=== PATIENT | female | born 1980 | race American Indian/Alaskan Native ===

== ENCOUNTER 2019-08-19 06:34 | Emergency (ER) | payer MEDICAID ==
[2019-08-19] MEDS ORDERED: ACETAMINOPHEN 500 MG TAB PO ONE (06:47)
[2019-08-19] MEDS ORDERED: SODIUM CHLORIDE 0.9% 500 ML 500 ML IV ONE (06:55)
--- NOTE | 2019-08-19 07:21 | XRay Report ---
CHEST 2 VIEWS INDICATION / CLINICAL INFORMATION: therese. Chest pain with dyspnea COMPARISON: None available. FINDINGS: SUPPORT DEVICES: None. HEART / MEDIASTINUM: No significant abnormality. LUNGS / PLEURA: Small right pleural effusion. Patchy airspace density within the right lower lung. Th e left lung is clear. Signer Name: Neptali Carroll MD Signed: 08/19/2019 7:17 AM Workstation Name: [id number]
[2019-08-19 07:23] LABS: Basophils # (Auto) 0.1 K/mm3 (0.0-0.1); Basophils % (Auto) 0.5 % (0.0-1.8); Eosinophils % (Auto) 0.2 % (0.0-4.3); Hematocrit 39.5 % (30.3-42.9); Hemoglobin 13.9 gm/dl (10.1-14.3); Lymphocytes # (Auto) 2.9 K/mm3 (1.2-5.4); Lymphocytes % (Auto) 20.5 % (13.4-35.0); Mean Corpuscular HGB Conc 35 % (30-34); Mean Corpuscular Volume 83 fl (79-97); Monocytes # (Auto) 0.9 K/mm3 (0.0-0.8); Monocytes % (Auto) 6.4 % (0.0-7.3); Platelet Count 260 K/mm3 (140-440); Red Blood Count 4.74 M/mm3 (3.65-5.03); Red Cell Distribution Width 15.4 % (13.2-15.2)
[2019-08-19 07:33] LABS: INR 1.09 (0.87-1.13)
[2019-08-19 07:43] LABS: Alanine Aminotransferase 15 units/L (7-56); Albumin 3.9 g/dL (3.9-5); BUN/Creatinine Ratio 7; Blood Urea Nitrogen 4 mg/dL (7-17); Calcium 9.3 mg/dL (8.4-10.2); Hemolysis Index 6
[2019-08-19] MEDS ORDERED: KETOROLAC 30 MG/1 ML INJ IV ONE (07:51)
--- NOTE | 2019-08-19 07:57 | Emergency Department Report ---
HPI - General Chief Complaint: Dyspnea/Respdistress PUI?: Yes Time Seen by Provider: 08/19/19 07:37 - HPI HPI: Room 9 The patient is a 38-year-old female present with a chief complaint of right sided thorax pain and cough. The patient states she developed pain in her right lateral chest/side has been worsening over the past 2 days. Patient admits to an occasional cough but is nonproductive. Patient denies history of fever but was found to be febrile in triage today. Patient denies any known sick contacts, patient denies dysuria or rhinorrhea. Location: [See above] Duration: [See above] Quality: [See above] Severity: [See above] Timing: [See above] Context: [See above] Modifying factors: [See above] Associated signs and symptoms: [see above] Mode of Transportation: The patient drove herself to the emergency department and there are no visitors present ED Past Medical Hx - Past Medical History Previous Medical History?: No - Surgical History Past Surgical History?: Yes Additional Surgical History: C-Sec X 3 - Family History Family history: no significant - Social History Smoking Status: Never Smoker Substance Use Type: None (Denies illicit drug use), Alcohol (Occasional) - Medications Home Medications: Home Medications Medication Instructions Recorded Confirmed Last Taken Type Albuterol INH(or & Nicu Only) 2 puff IH QID PRN #8.5 gram 08/19/19 Unknown Rx [ProAir HFA Inhaler] HYDROcodone/APAP 5-325 [Norris 1 - 2 each PO Q6HR PRN #14 tablet 08/19/19 Unknown Rx 5/325] Ibuprofen [Motrin 800 MG tab] 800 mg PO Q8HR PRN #20 tablet 08/19/19 Unknown Rx levoFLOXacin [Levaquin TAB] 500 mg PO QDAY #10 tablet 08/19/19 Unknown Rx ED Review of Systems ROS: Stated complaint: PAIN WHEN BREATHING RT SIDE Other details as noted in HPI Constitutional: denies: fever Eyes: denies: eye pain ENT: denies: throat pain Respiratory: cough Endocrine: no symptoms reported Genitourinary: denies: dysuria Musculoskeletal: denies: back pain Physical Exam - Physical Exam Vital Signs: Vital Signs 08/19/19 06:44 Temperature 100.6 F H Pulse Rate 107 H Respiratory 20 Rate Blood Pressure 136/88 O2 Sat by Pulse 95 Oximetry Physical Exam: GENERAL: The patient is well-developed well-nourished female lying on stretcher not appearing to be in acute distress. [] HEENT: Normocephalic. Atraumatic. Extraocular motions are intact. Patient has moist mucous membranes. NECK: Supple. Trachea midline CHEST/LUNGS: Diminished sounds at right base. There is no respiratory distress noted. HEART/CARDIOVASCULAR: Regular. There is tachycardia. There is no gallop rub or murmur. ABDOMEN: Abdomen is soft, nontender. Patient has normal bowel sounds. There is no abdominal distention. SKIN: There is no rash. There is no edema. There is no diaphoresis. NEURO: The patient is awake, alert, and oriented. The patient is cooperative. The patient has normal speech MUSCULOSKELETAL: There is no evidence of acute injury. ED Course Vital Signs 08/19/19 06:44 Temperature 100.6 F H Pulse Rate 107 H Respiratory 20 Rate Blood Pressure 136/88 O2 Sat by Pulse 95 Oximetry - Reevaluation(s) Reevaluation #1: 08/19/19 09:32 SPO2 95% on room air with ambulation x2 minutes ED Medical Decision Making - Lab Data Result diagrams: 08/19/19 07:02 08/19/19 07:02 Laboratory Tests 08/19/19 08/19/19 08/19/19 07:02 07:02 07:02 WBC 14.1 H RBC 4.74 Hgb 13.9 Hct 39.5 MCV 83 MCH 29 MCHC 35 H RDW 15.4 H Plt Count 260 Lymph % (Auto) 20.5 [place] % (Auto) 6.4 Eos % (Auto) 0.2 Baso % (Auto) 0.5 Lymph # 2.9 [place] # 0.9 H Eos # 0.0 Baso # 0.1 Seg Neutrophils % 72.4 H Seg Neutrophils # 10.2 H PT 13.9 INR 1.09 VBG pH Sodium 140 Potassium 3.3 L Chloride 101.3 Carbon Dioxide 24 Anion Gap 18 BUN 4 L Creatinine 0.6 L Estimated GFR > 60 BUN/Creatinine Ratio 7 Glucose 118 H Lactic Acid Calcium 9.3 Total Bilirubin 0.90 AST 14 ALT 15 Alkaline Phosphatase 67 Total Protein 7.7 Albumin 3.9 Albumin/Globulin Ratio 1.0 08/19/19 08/19/19 07:02 07:02 WBC RBC Hgb Hct MCV MCH MCHC RDW Plt Count Lymph % (Auto) [place] % (Auto) Eos % (Auto) Baso % (Auto) Lymph # [place] # Eos # Baso # Seg Neutrophils % Seg Neutrophils # PT INR VBG pH 7.432 H Sodium Potassium Chloride Carbon Dioxide Anion Gap BUN Creatinine Estimated GFR BUN/Creatinine Ratio Glucose Lactic Acid 0.90 Calcium Total Bilirubin AST ALT Alkaline Phosphatase Total Protein Albumin Albumin/Globulin Ratio - Radiology Data Radiology results: report reviewed (Chest x-ray), image reviewed (Chest x-ray) interpreted by me: Chest x-ray-right lower lobe infiltrate Findings [facility] [address] [place] [address] XRay Report Signed Patient: JIMENEZ ANDUJAR MR#: [id number] : 1980 Acct:[id number] Age/Sex: 38 / F ADM Date: 08/19/19 Loc: ED Attending Dr: Ordering Physician: ED MD PORFIRIO Date of Service: 08/19/19 Procedure(s): XR chest routine 2V Accession Number(s): [id number] cc: ED DOCMD Fluoro Time In Minutes: CHEST 2 VIEWS INDICATION / CLINICAL INFORMATION: therese. Chest pain with dyspnea COMPARISON: None available. FINDINGS: SUPPORT DEVICES: None. HEART / MEDIASTINUM: No significant abnormality. LUNGS / PLEURA: Small right pleural effusion. Patchy airspace density within the right lower lung. The left lung is clear. Signer Name: Neptali Carroll MD Signed: 08/19/2019 7:17 AM Workstation Name: [id number] Transcribed By: BC Dictated By: Neptali Carroll MD Electronically Authenticated By: Neptali Carroll MD Signed Date/Time: 08/19/19716 DD/ 5 TD/TT: - Medical Decision Making Patient informed of findings. Patient also informed that it is possible she may have COVID-19 that she should self quarantine at home for 14 days. Patient was informed that testing for COVID-19 at this hospital is currently restricted to in patients only. Patient was notified that her information was submitted to the state for COVID-19. Patient given strong warnings to return to the ED should she develop worsening or new symptoms. - Differential Diagnosis Pneumonia, COVID-19 Critical care attestation.: If time is entered above; I have spent that time in minutes in the direct care of this critically ill patient, excluding procedure time. ED Disposition Clinical Impression: Pneumonia Disposition: DC-01 TO HOME OR SELFCARE Is pt being admited?: No Does the pt Need Aspirin: No Condition: Stable Instructions: Bacterial Pneumonia (ED) Additional Instructions: Return to the emergency department should you develop worsening symptoms, inability to tolerate food or liquids, high fever or any other concerns Prescriptions: levoFLOXacin [Levaquin TAB] 500 mg PO QDAY #10 tablet Ibuprofen [Motrin 800 MG tab] 800 mg PO Q8HR PRN #20 tablet PRN Reason: Pain, Moderate (4-6) HYDROcodone/APAP 5-325 [Norris 5/325] 1 - 2 each PO Q6HR PRN #14 tablet PRN Reason: Pain Albuterol INH(or & Nicu Only) [ProAir HFA Inhaler] 2 puff IH QID PRN #8.5 gram PRN Reason: Shortness Of Breath Referrals: JACIEL CASTILLO MD [Staff Physician] - 3-5 Days Time of Disposition: 09:52
[2019-08-19] MEDS ORDERED: SODIUM CHLORIDE 0.9% 1000 ML 1,000 ML IV ONE (07:59)
[2019-08-19] MEDS ORDERED: cefTRIAXone/NS 2 GM/100 ML 2 GM/100 ML BAG IV ONE (08:00)
[2019-08-19] MEDS ORDERED: AZITHROMYCIN 500 MG in SODIUM CHLORIDE 0.9% 250ML 250 ML IV ONE (08:15)
[2019-08-19 10:57] LABS: Bilirubin,Urine NEG (Negative); Blood,Urine SM (Negative); Color,Urine Yellow (Yellow); Mucus,Urine 3+ /HPF; Urobilinogen,Urine < 2.0 mg/dL (<2.0)
[2019-08-19 11:57] VITALS: BP 155/90
== END 2019-08-19 11:58 | disposition home or self-care (01) ==
LOC: ED 06:34
DX: J18.9 Pneumonia, unspecified organism (principal)
CPT/HCPCS: 36415; 71046; 80053; 81001; 82140; 82805; 85025; 85610; 87040; 87086; 96365; 96367; 96375; 99284; J0456; J0696; J1885; J7030; J7040; J7050